=== PATIENT | female | born 1985 | race Caucasian/White ===

== ENCOUNTER 2021-07-01 16:55 | Inpatient (IN) | payer OTHER, SELFPAY ==
[2021-07-01 18:00] VITALS: BP 110/57; PULSE 68; TEMP 37.1
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
[2021-07-01] MEDS: busPIRone HCl 5 MG TABLET 7.5 MG PO (20:37)
[2021-07-01] MEDS: hydrOXYzine HCL 50 MG TABLET PO (20:38)
[2021-07-01] MEDS: Acetaminophen 325 MG TABLET 650 MG PO (20:38)
[2021-07-02 06:00] VITALS: BP 115/64; PULSE 79; RESP 16; TEMP 37; O2SAT 98
--- NOTE | 2021-07-02 06:12 | HO.PSYCHPN ---
Subjective Subjective Date of Service: 07/02/21 Reason For Visit: Depression, Catatonia Healthcare Proxy: No Interim History: H and P reviewed. Refused to engage. Brief perfunctory responses. Signed a 3 day notice. Pt has angry restless demeanor. Refuses meds. Medication Compliance: No Attending Groups: No Review of Systems Acute medical concerns: No Diagnostics Vital Signs (24Hr): Vital Signs - 24 hr 07/01/21 18:00 Temperature 98.8 F Pulse Rate 68 Blood Pressure 110/57 L Medications Medications Current Medications Acetaminophen (Acetaminophen 325 Mg Tablet) 650 mg PO Q6H PRN PRN Reason: Headache/Pain Mild Scale (1-3) Last Admin: 07/01/21 20:38 Dose: 650 mg Documented by: Al Hydroxide/Mg Hydroxide (Magnesium Hydrox/Alum Hydrox 30 Ml Oral.Susp) 30 ml PO Q6H PRN PRN Reason: Heartburn/Nausea Albuterol Sulfate (Albuterol Sulfate 90 Mcg 8 Gm Inhaler) 2 puff INHALE Q4H PRN PRN Reason: asthma Buspirone HCl (Buspirone Hcl 5 Mg Tablet) 7.5 mg PO BID CHARMAINE Last Admin: 07/01/21 20:37 Dose: 7.5 mg Documented by: Hydroxyzine HCl (Hydroxyzine Hcl 50 Mg Tablet) 50 mg PO Q8H PRN PRN Reason: anxiety Last Admin: 07/01/21 20:38 Dose: 50 mg Documented by: Lorazepam (Lorazepam 1 Mg Tablet) 1 mg PO Q6H PRN PRN Reason: anxiety, agitation Magnesium Hydroxide (Milk Of Magnesia 30 Ml Oral.Susp) 30 ml PO DAILY PRN PRN Reason: Constipation Trazodone HCl (Trazodone Hcl 50 Mg Tablet) 50 mg PO BEDTIME PRN PRN Reason: Insomnia Allergies Allergies Allergy/AdvReac Type Severity Reaction Status Date / Time No Known Allergies Allergy Unverified 07/01/21 17:34 Assessment & Plan I spent minutes with the patient and/or on the patient floor today, greater than?50% of which was spent counseling/coordinating care. Reason for contiued inpatient stay Substantial Risk for: harm to self and rapid decompensation
--- NOTE | 2021-07-02 08:03 | P.CONHOSP_ITS ---
History of Present Illness Data of Consult Service Date: 07/02/21 Primary Care Provider: Unknown Physician HPI 36-year-old woman with history of depression admitted to for psychiatric care. Her vital signs are stable. Labs within acceptable limits. She has no acute medical problems. Review of Systems Verdana 4l Review of Systems: Verdana 4d Verdana 4d Denies any recent fever chills or decrease in appetite respiratory denies any shortness of breath coverage production cardiovascular denies chest pain gastrointestinal denies any dysphagia abdominal pain nausea vomiting or diarrhea genitourinarygenitourinary denies any dysuria frequency or hematuria musculoskeletal denies any joint pain or swelling neuropsych denies any weakness or seizures all other systems reviewed are negative [facility] Medical History (Updated 07/02/21 @ 10:05 by Maggie Yates NP) Asthma Pertinent family history: No cardiac disease Social History Household Members: None Housing: House Do you presently have visiting nurse or other home services: No Patient Tobacco Use Status: Current everyday Tobacco user Tobacco use type: Cigarette Cigarette Packs Per Day: 2 Cigarettes Per Day: 40.0 Years Smoked: 10 Smoked in Last 30 Days: Yes Patient Interested in Nicotine Replacement: No Patient Given Instructions on How to Stop Smoking: No Second Hand Smoke Exposure: No Use of substances other than those prescribed or required for medical reasons: Yes Substance Use Type: Marijuana Currently Displaying Signs/Symptoms of Drug Intoxication Withdrawal: No Have you been hit, kicked, punched, or otherwise hurt by someone within the past year? If so, by whom?: No Do you feel safe in your current relationship?: No Current Relationship Is there a partner from a previous relationship who is making you feel unsafe no w?: No Are you made to feel afraid or neglected: No Advance Directives: No Advance Directives Information Provided: Yes Advance Directives on File: No Do you have thoughts of harming others: None Do you have a plan to hurt others: No Plan Recently lost weight without trying: No How much weight loss: Not applicable Eating poorly because of decreased appetite: No Nutrition screen score: 0 Nutrition Risks: No Nutritional Risk Patient : No : No Poor oral hygiene: No Meds Allergies Allergy/AdvReac Type Severity Reaction Status Date / Time No Known Allergies Allergy Unverified 07/01/21 17:34 Active Medications: Current Medications Acetaminophen (Acetaminophen 325 Mg Tablet) 650 mg PO Q6H PRN PRN Reason: Headache/Pain Mild Scale (1-3) Last Admin: 07/01/21 20:38 Dose: 650 mg Documented by: Al Hydroxide/Mg Hydroxide (Magnesium Hydrox/Alum Hydrox 30 Ml Oral.Susp) 30 ml PO Q6H PRN PRN Reason: Heartburn/Nausea Albuterol Sulfate (Albuterol Sulfate 90 Mcg 8 Gm Inhaler) 2 puff INHALE Q4H PRN PRN Reason: asthma Buspirone HCl (Buspirone Hcl 5 Mg Tablet) 7.5 mg PO BID CHARMAINE Last Admin: 07/01/21 20:37 Dose: 7.5 mg Documented by: Hydroxyzine HCl (Hydroxyzine Hcl 50 Mg Tablet) 50 mg PO Q8H PRN PRN Reason: anxiety Last Admin: 07/01/21 20:38 Dose: 50 mg Documented by: Lorazepam (Lorazepam 1 Mg Tablet) 1 mg PO Q6H PRN PRN Reason: anxiety, agitation Magnesium Hydroxide (Milk Of Magnesia 30 Ml Oral.Susp) 30 ml PO DAILY PRN PRN Reason: Constipation Trazodone HCl (Trazodone Hcl 50 Mg Tablet) 50 mg PO BEDTIME PRN PRN Reason: Insomnia Physical Exam Verdana 4l Vital Signs and Narrative: Verdana 4d Verdana 4d Vital Signs: Verdana 4d Verdana 4Bd Last Vital Signs Verdana 4d Aerial Photographer New 4d Aerial Photographer New 4d Temp 98.6 F 07/02/21 06:00 Aerial Photographer New 4d Pulse 79 07/02/21 06:00 Aerial Photographer NewNew 4d Resp 16 07/02/21 06:00 BP 115/64 07/02/21 06:00 Pulse Ox 98 07/02/21 06:00 Appearing in no acute distress lung sounds are clear to auscultation heart regular rate rhythm, clear S1, S2 positive bowel sounds, abdomen is soft, nontender neuro patient is alert x3, no focal deficits CRANIAL NERVES 2-12 GROSSLY INTACT WITHOUT FOCAL DEFICITS Assessment and Plan (1) Asthma: Status: Acute 36-year-old woman admitted to for psychiatric care Asthma. No exacerbation. Mental health Management as per admitting team
[2021-07-02 08:17] LABS: Estimated Average Glucose 105 mg/dL; Hemoglobin A1c % 5.3 %
[2021-07-02 08:19] LABS: Cholesterol 151 mg/dL; HDL Cholesterol 45 mg/dL; Iron 24 mcg/dL (30-160); LDL Cholesterol Calculated 93 mg/dl; Percent Iron Saturation 6 % (15-50); Total Iron Binding Capacity 426 mcg/dL (228-428); Triglycerides 66 mg/dL; Unsaturated Iron Binding 402 ug/dL
[2021-07-02 08:43] LABS: Free T4 (Free Thyroxine) 1.28 ng/dL (0.71-1.85)
[2021-07-02] MEDS: busPIRone HCl 5 MG TABLET 7.5 MG PO ×2 (09:04→21:11)
[2021-07-02 10:35] LABS: Glucose, Whole Blood 114 mg/dL (60-115)
[2021-07-02 10:50] LABS: Amphetamine Screen Urine Not Detected (Not Detect); Barbiturates, Urine Not Detected (Not Detect); Benzodiazepines Screen Urine Not Detected (Not Detect); Cannabinoid Screen Urine POSITIVE (Not Detect); Cocaine Screen Urine Not Detected (Not Detect); Fentanyl, urine Not Detected (Not Detect); Opiate Screen Urine Not Detected (Not Detect); Phencyclidine Screen Urine Not Detected (Not Detect)
[2021-07-02 16:40] VITALS: BP 116/77; PULSE 75; TEMP 37.2
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
[2021-07-03 17:07] VITALS: BP 122/74; PULSE 61; RESP 16; TEMP 37.1; O2SAT 98
[2021-07-04 08:36] LABS: Folate 19.4 ng/mL (> or = 4.0); Vitamin B12 639 pg/mL (200-900)
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
--- NOTE | 2021-07-05 06:21 | PC.NURSE ---
At start of change of evening or night nurse supervisor approximately 10:45pm it was passed along patient had been sitting on floor in bathroom all day and evening, refusing to leave. It was reported patient had been verbally abusive to staff and rude to roommate around the matter. Patient was assessed sitting on floor, she reported she needed to be near the toilet in case she needed to vomit as she had been feeling nauseous; staff reported patient had not vomited all day. Patient was asked to come out of the bathroom x 3. Patient refused, becoming agitated, verbally aggressive, and making threats. Security was called for support. Security talked with patient at length to de-escalate the situation and again ask her to come out of bathroom; patient refused. Patient was escorted out of bathroom by Security and bathroom was locked. Patient was provided with warm blankets and offered PRN medications x 6-7 times throughout the evening, patient refused.
[2021-07-05 18:00] VITALS: RESP 16
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
[2021-07-06 11:56] VITALS: BP 137/73; PULSE 89; RESP 14; O2SAT 99
[2021-07-06] MEDS: LORazepam 2 MG/ML VIAL 1 MG IM (14:30)
[2021-07-06 17:06] VITALS: BP 122/81; PULSE 66; TEMP 36.9; O2SAT 99
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
[2021-07-06 21:08] LABS: COVID-19 Test Negative (Negative)
[2021-07-07] MEDS: LORazepam 2 MG/ML VIAL 1 MG IM ×2 (16:57→21:51)
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
[2021-07-07 21:40] VITALS: BP 119/67; PULSE 86; TEMP 36.6
[2021-07-08 08:58] LABS: COVID-19 Test Negative (Negative)
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
[2021-07-08 19:25] VITALS: BP 126/74; PULSE 63; RESP 16; TEMP 37.2; O2SAT 96
--- NOTE | 2021-07-09 11:22 | PC.NURSE ---
PT WALKING AROUND ROOM, REFUSED MEDICATION. ATIVAN FOR CATATONIA HELD
[2021-07-09 18:00] VITALS: BP 109/65; PULSE 64; RESP 14; TEMP 36.9; O2SAT 98
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
[2021-07-10 06:00] VITALS: BP 106/66; PULSE 57; RESP 16; TEMP 37; O2SAT 98
[2021-07-10 07:42] LABS: MANUAL DIFF FLAG NO
[2021-07-10 07:57] LABS: Basophils Percent Auto 0.5 % (0-2); Eosinophils Absolute Auto 0.1 X10*3/uL (0.0-0.4); Eosinophils Percent Auto 1.1 % (0-4); Hematocrit 42.6 % (37.0-47.0); Hemoglobin 14.1 g/dl (12.0-16.0); Imm Gran Abs Auto 0.01 X10*3/uL (0.00-0.03); Imm Gran Pct Auto 0.2 % (0.0-0.4); Lymphocytes Absolute Auto 1.9 X10*3/uL (1.2-4.9); Lymphocytes Percent Auto 33.6 % (20-40); Mean Corpuscular HGB Conc 33.1 g/dl (31.0-35.0); Mean Corpuscular Volume 87.7 fL (80.0-98.0); Mean Platelet Volume 9.5 fL (9.4-12.3); Monocytes Absolute Auto 0.8 X10*3/uL (0.1-1.2); Monocytes Percent Auto 14.9 % (2-11); Neutrophils Absolute Auto 2.8 x10*3/uL (2.0-8.3); Neutrophils Percent Auto 49.7 % (45-73); Platelet Count 273 X10*3/uL (160-400); Red Blood Count 4.86 X10*6/uL (4.20-5.50); Red Cell Distribution Width 14.5 % (11.0-16.0); White Blood Count 5.6 X10*3/uL (4.8-10.8)
[2021-07-10 07:59] LABS: Alanine Aminotransferase 27 U/L (0-31); Albumin Level 4.5 g/dL (3.5-5.0); Alkaline Phosphatase 73 U/L (39-117); Anion Gap 19 (12-20); Aspartate Amino Transferase 29 U/L (5-31); Bilirubin Total 0.6 mg/dL (0.0-1.0); Blood Urea Nitrogen 18 mg/dL (9-16); Calcium 9.5 mg/dL (8.4-10.2); Carbon Dioxide 18 mmol/L (22-29); Chloride 104 mmol/L (96-108); Estimated Glomerular Filt Rate > 60; Glucose Random 65 mg/dL (60-115); Potassium 3.7 mmol/L (3.3-5.1); Sodium 137 mmol/L (135-145); Total Protein 7.8 g/dL (6.5-8.0)
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
[2021-07-10 21:20] VITALS: BP 118/74; PULSE 65; RESP 14; TEMP 37.2; O2SAT 99
[2021-07-11 13:08] LABS: COVID-19 Test Negative (Negative); IDNOW Serial# 55D5AD1C
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
[2021-07-11 16:52] VITALS: BP 115/67; PULSE 68; TEMP 37.1; O2SAT 98
--- NOTE | 2021-07-11 19:56 | PC.NURSE ---
Patient was noted to be sitting up in be with her knitted hat off. She was making a chewing motion with her mouth and an opened bag of potato chips was next to her. This marketing underwriter asked patient if she was willing to take her HS medications; patient stared straight ahead and would not respond.
[2021-07-12 06:00] VITALS: BP 116/61; PULSE 75; RESP 16; TEMP 36.6; O2SAT 98
[2021-07-12] MEDS: ARIPiprazole 15 MG TABLET PO (10:44)
[2021-07-12] MEDS: LORazepam 1 MG TABLET PO (10:44)
[2021-07-12 16:24] VITALS: BP 111/68; PULSE 97; TEMP 37.1; O2SAT 97
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
[2021-07-13 06:00] VITALS: BP 108/68; PULSE 73; RESP 16; TEMP 36.8; O2SAT 99
[2021-07-13] MEDS: LORazepam 2 MG/ML VIAL 1 MG IM ×3 (09:15→22:16)
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
[2021-07-13 18:00] VITALS: BP 104/62; PULSE 68; TEMP 36.8; O2SAT 99
--- NOTE | 2021-07-14 00:41 | PC.NURSE ---
The patient was initially awake and would nod her head when this typewriter ribbon winder spoke to her around 1600 on 07/13/21. This typewriter ribbon winder asked her if the stress of 3 children, COVID and life in general was affecting her. Patient nodded yes. She also verbalized that she was cold and was given additional blankets.However when this typewriter ribbon winder attempted to give patient her evening medications she would not respond at all but sat at the head of her bed and started straight ahead. She was not resistive to IM injection of Ativan.
[2021-07-14 06:00] VITALS: BP 120/64; PULSE 80; RESP 16; TEMP 36.8; O2SAT 99
[2021-07-14] MEDS: LORazepam 2 MG/ML VIAL 1 MG IM (10:23)
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
[2021-07-14 18:00] VITALS: RESP 16
[2021-07-15 06:00] VITALS: BP 120/73; PULSE 64; RESP 16; TEMP 36.8; O2SAT 98
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
[2021-07-15 17:04] VITALS: RESP 16
[2021-07-16 06:00] VITALS: BP 98/62; PULSE 62; TEMP 36.7; O2SAT 97
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
[2021-07-16 17:17] VITALS: RESP 16
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
[2021-07-17 18:00] VITALS: RESP 16
[2021-07-18 08:01] VITALS: BP 114/72; PULSE 62; TEMP 36.9
[2021-07-18] MEDS: LORazepam 2 MG/ML VIAL 1 MG IM (08:56)
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
[2021-07-18 17:35] VITALS: RESP 16
[2021-07-19 06:00] VITALS: BP 107/55; PULSE 66; RESP 16; TEMP 36.3
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
[2021-07-19 16:53] VITALS: BP 82/52; PULSE 67
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
[2021-07-19 20:27] VITALS: BP 94/53; PULSE 82; RESP 16; TEMP 37.2
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
[2021-07-20] MEDS: LORazepam 2 MG/ML VIAL 1 MG IM ×2 (14:44→22:03)
[2021-07-20 18:00] VITALS: BP 108/72; PULSE 95; TEMP 36.6; O2SAT 95
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
== END 2021-07-21 13:13 | disposition home or self-care (01) | DRG 751 ==
PROVIDERS: Psychiatry & Neurology Psychiatry; Registered Nurse; Admitting Provider Psychiatry & Neurology Psychiatry; Visit Provider Clinical Nurse Specialist Psychiatric/Mental Health, Adult
DX: F33.3 Major depressive disorder, recurrent, severe with psychotic symptoms (principal); Z91.19 Patient's noncompliance with other medical treatment and regimen; F17.210 Nicotine dependence, cigarettes, uncomplicated; J45.909 Unspecified asthma, uncomplicated; F43.10 Post-traumatic stress disorder, unspecified; Z20.822 Contact with and (suspected) exposure to COVID-19; Z71.6 Tobacco abuse counseling; Z79.899 Other long term (current) drug therapy
CPT/HCPCS: 36415; 80053; 80061; 80307; 82607; 82746; 82947; 83036; 83540; 83735; 84439; 84443; 85025; 87635; J2060